=== PATIENT | male | born 1980 | race Caucasian/White ===

== ENCOUNTER 2016-11-10 19:26 | Emergency (ER) ==
[2016-11-10] MEDS ORDERED: AUGMENTIN 875-125 MG TAB PO STA (19:44)
[2016-11-10] MEDS ORDERED: TENIVAC IM ONE (19:44)
[2016-11-10 19:46] VITALS: BP 135/89; TEMP 98.4; BMI 20.1
--- NOTE | 2016-11-10 19:46 | ED.PDOC ---
General ED Provider: Dr. EASTON LANE-ER Chief Complaint: Bite Stated Complaint: bitten by dog on the left hand Time Seen by Physician: 19:30 Mode of Arrival: Walk-In Information Source: Patient Exam Limitations: No limitations Nursing and Triage Documentation Reviewed and Agree: Yes Skin Complaint Exam - Laceration/Abrasion/Hand Complaint/Exam Location of Injury: Right, Left, Hand Mechanism of Injury: Puncture Onset/Duration: 8hrs Symptoms Are: Still present Initial Severity: Mild Current Severity: Mild Aggravating: Movement Alleviating: Compression Associated Signs and Symptoms: Denies: Fever, Chills, Erythema, Numbness, Tingling Differential Diagnoses: Bite Injury Review of Systems - Review Of Systems Constitutional: Reports: No symptoms Eyes: Reports: No symptoms Ears, Nose, Mouth, Throat: Reports: No symptoms Respiratory: Reports: No symptoms Cardiac: Reports: No symptoms GI: Reports: No symptoms : Reports: No symptoms Musculoskeletal: Reports: No symptoms Skin: Reports: No symptoms Neurological: Reports: No symptoms Endocrine: Reports: No symptoms Hematologic/Lymphatic: Reports: No symptoms All Other Systems: Reviewed and Negative Past Medical History - Past Medical History Endocrine: Reports: Unknown Cardiovascular: Reports: Unknown Respiratory: Reports: Unknown Hematological: Reports: Unknown Gastrointestinal: Reports: Unknown Genitourinary: Reports: Unknown Neuro/Psych: Reports: Unknown Musculoskeletal: Reports: Unknown Cancer: Reports: Unknown - Surgical History General Surgical History: Reports: Unknown - Family History Family History: Reports: Unknown - Social History Smoking Status: Former smoker Hx Substance Use: No Alcohol Screening: Occasionally Lives: With family - Immunizations Tetanus Shot up to Date: No Physical Exam - Physical Exam Appearance: Well-appearing, No pain distress, Well-nourished Pain Distress: Mild Eyes: SVETA, EOMI, Conjunctiva clear ENT: Ears normal, Nose normal, Oropharynx normal Neck: Supple Respiratory: Airway patent Cardiovascular: RRR GI/: Soft, Nontender, No masses, Bowel sounds normal, No Organomegaly Musculoskeletal: Normal strength, ROM intact, No edema, No calf tenderness Skin: Warm, Dry, Normal color Neurological: Sensation intact, Motor intact, Reflexes intact, Cranial nerves intact, Alert, Oriented Psychiatric: Affect appropriate, Mood appropriate Interpretation - Radiology Interpretation Radiology Interpretation By: ED Physician Radiology Results: Negative ("old boxers fx") Critical Care Note - Critical Care Note Total Time (mins): 0 Course - Course Orders, Labs, Meds: Orders Category Date Time Status Wound care [ED WOUND CARE] .ONCE EMERGENCY 11/10/16 19:45 Active Amoxicillin/Potassium Clav [Augmentin 875-125 mg Tab] MEDS 11/10/16 19:44 Discontinued 1 tab PO ONCE STA Tetanus and Diphtheria Tox/Pf [Tenivac] MEDS 11/10/16 19:44 Discontinued 0.5 ml IM .ONCE ONE HAND, LEFT 3 VIEWS Stat RADS 11/10/16 19:44 Taken Medications Discontinued Medications Generic Name Dose Route Start Last Admin Trade Name Freq PRN Reason Stop Dose Admin Amoxicillin/Clavulanate Potassium 1 tab 11/10/16 19:44 Augmentin 875-125 Mg Tab PO 11/10/16 19:45 ONCE STA Tetanus/Diphtheria Toxoids Adsorbed 0.5 ml 11/10/16 19:44 Tenivac IM 11/10/16 19:45 .ONCE ONE Vital Signs: Temp Pulse Resp BP Pulse Ox 11/10/16 19:28 98.4 F 94 H 20 135/89 97 Departure - Departure Time of Disposition: 19:56 Disposition: HOME SELF-CARE Discharge Problem: Dog bite Qualifiers: Encounter type: initial encounter Qualifier Code: (W54.0XXA) Bitten by dog, initial encounter Instructions: Animal Bite (ED) Condition: Good Pt referred to PMD for follow-up: Yes Additional Instructions: wash wound twice daily with soap and water --augmentin 875mg bid x 5 days-- return if any increased swelling or pain Allergies/Adverse Reactions: Allergies No Known Allergies Allergy (Unverified 11/10/16 19:40) Home Medications: Ambulatory Orders 1 [No Reported Medications] 11/10/16 Disposition Discussed With: Patient, Family
--- NOTE | 2016-11-11 07:39 | DI ---
EXAM: Three x-rays of the left hand. Comparison: None available. Reason for exam: I. FINDINGS: No acute fracture or dislocation. The joint spaces are well maintained. Cortical irregu larity in the left fifth metacarpal likely from previous injury. No radiopaque retained foreign bod ies or calcific soft tissue densities. Impression: No acute fracture or dislocation in the left hand.
== END 2016-11-10 20:00 | disposition home or self-care (01) ==
LOC: ED 19:26
DX: S61.452A Open bite of left hand, initial encounter (principal); W54.0XXA Bitten by dog, initial encounter
CPT/HCPCS: 90471; 99283

== ENCOUNTER 2017-12-06 18:23 | Emergency (ER) ==
[2017-12-06 18:31] VITALS: BP 130/88; TEMP 99.1; BMI 19.1
--- NOTE | 2017-12-06 18:45 | ED.PDOC ---
General Stated Complaint: i kicked a lawnmower seat--i think my foot is broken Time Seen by Physician: 18:30 Mode of Arrival: Walk-In Information Source: Patient Exam Limitations: No limitations Nursing and Triage Documentation Reviewed and Agree: Yes Reviewed sepsis parameters & appropriate labs ordered?: Yes System Inflammatory Response Syndrome: Not Applicable <EASTON LEE - Last Filed: 12/06/17 18:43> <BHUMI LEÓN - Last Filed: 12/06/17 20:04> ED Provider: Dr. BHUMI LEÓN Chief Complaint: Foot Pain/Injury Sepsis Protocol: For patient's 13 years and over: Temp is 96.8 and below OR 101 and greater Pulse >90 BPM Resp >20/minute Acutely Altered Mental Status Are patient's symptoms suggestive of a new infection, such as: -Pneumonia -Skin, Soft Tissue -Endocarditis -UTI -Bone, Joint Infection -Implantable Device -Acute Abdominal Infection -Wound Infection -Meningitis -Blood Stream Catheter Infection -Unknown Musculoskeletal Complaint Exam - Ankle/Foot Complaint/Exam Location of Injury: Reports: Right, Foot Mechanism of Injury: Reports: Trauma Onset/Duration: 6 hrs Symptoms Are: Reports: Still present Onset of Pain: Reports: Immediate Initial Severity: Mild Current Severity: Mild Location: Reports: Discrete (right foot) Character: Reports: Dull, Aching Aggravating: Reports: Movement, Weight bearing Able to Bear Weight: No Associated Signs and Symptoms: Reports: Swelling Lower Extremity Findings: Present: Swelling, Tenderness, Limited range of motion Achilles Tendon Abnormality: No Tenderness: Present: Midfoot, Metatarsals Differential Diagnosis: Contusion, Closed Fracture, Sprain, Strain <EASTON LEE - Last Filed: 12/06/17 18:43> Review of Systems - Review Of Systems Constitutional: Reports: No symptoms Eyes: Reports: No symptoms Ears, Nose, Mouth, Throat: Reports: No symptoms Respiratory: Reports: No symptoms Cardiac: Reports: No symptoms GI: Reports: No symptoms : Reports: No symptoms Musculoskeletal: Reports: Muscle pain Skin: Reports: No symptoms Neurological: Reports: No symptoms Endocrine: Reports: No symptoms Hematologic/Lymphatic: Reports: No symptoms All Other Systems: Reviewed and Negative <EASTON LEE - Last Filed: 12/06/17 18:43> Past Medical History - Past Medical History Previously Healthy: Yes Endocrine: Reports: Unknown Cardiovascular: Reports: Unknown Respiratory: Reports: Unknown Hematological: Reports: Unknown Gastrointestinal: Reports: Unknown Genitourinary: Reports: Unknown Neuro/Psych: Reports: Unknown Musculoskeletal: Reports: Unknown Cancer: Reports: Unknown - Surgical History General Surgical History: Reports: Unknown - Family History Family History: Reports: Unknown - Social History Smoking Status: Former smoker Hx Substance Use: No Alcohol Screening: Occasionally <CIELOEFRENEASTON Last Filed: 12/06/17 18:43> Physical Exam - Physical Exam Appearance: Well-appearing, No pain distress, Well-nourished Eyes: SVETA, EOMI, Conjunctiva clear ENT: Ears normal, Nose normal, Oropharynx normal Neck: Supple Respiratory: Airway patent, Breath sounds clear, Breath sounds equal, Respirations nonlabored Cardiovascular: RRR, Pulses normal, No rub, No murmur GI/: Soft, Nontender, No masses, Bowel sounds normal, No Organomegaly Musculoskeletal: Limited ROM, Edema Skin: Warm Neurological: Sensation intact, Motor intact, Reflexes intact, Cranial nerves intact, Alert, Oriented Psychiatric: Affect appropriate, Mood appropriate <CIELOEFRENEASTON Last Filed: 12/06/17 18:43> Interpretation - Radiology Interpretation Radiology Interpretation By: Radiologist Radiology Results: Positive (Fracture 1st cuniform bone) <BHUMI LEÓN Last Filed: 12/06/17 20:04> Critical Care Note - Critical Care Note Total Time (mins): 30 <MARK LEÓNAN Filed: 12/06/17 20:04> - Course Orders, Labs, Meds: Orders Category Date Time Status Ice Pack [ED APPLY ICE AFFECTED AREA] .ONCE EMERGENCY 12/06/17 18:[address] FOOT RIGHT WITHOUT CONTRAST Stat RADS 12/06/17 18:33 Completed FOOT, RIGHT 3 VIEWS Stat RADS 12/06/17 19:08 Completed Vital Signs: Temp Pulse Resp BP Pulse Ox 12/06/17 18:24 99.1 F 107 H 16 130/88 96 Departure <[email or web address] Last Filed: 12/06/17 18:43> - Departure Time of Disposition: 20:01 Pt referred to PMD for follow-up: Yes IPMP verified?: Yes Disposition Discussed With: Patient, Family <BHUMI LEÓN - Last Filed: 12/06/17 20:04> - Departure Disposition: HOME SELF-CARE Discharge Problem: Cuneiform fracture, foot Instructions: Foot Fracture in Adults (ED) Condition: Stable Additional Instructions: rest f/u with [facility], needs ortho f./u Prescriptions: Hydrocodone Bit/Acetaminophen [Clarion 7.5-325] 1 each PO Q8H #10 tablet Allergies/Adverse Reactions: Allergies No Known Allergies Allergy (Verified 12/06/17 18:28) Home Medications: Ambulatory Orders Hydrocodone Bit/Acetaminophen [Clarion 7.5-325] 1 each PO Q8H #10 tablet 12/06/17
--- NOTE | 2017-12-06 19:31 | CT ---
Addendum: There is a 2 mm bony body within the dorsal medial aspect of the first tarsometatarsal joint.. There is also a 3.7 mm linear bony body arising dorsolaterally from the first cuneiform.. There is minima l adjacent soft tissue swelling.
--- NOTE | 2017-12-06 19:38 | DI ---
EXAM: Right foot three views HISTORY: Trauma COMPARISON: None. FINDINGS: There is 2.6 mm linear bony body adjacent to the distal aspect of the first cuneiform along the dorsal medial aspect. There is mild adjacent soft tissue swelling. No other abnormalities ident ified. IMPRESSION: Likely small linear avulsion fracture arising dorsomedially the from the first cuneiform .
== END 2017-12-06 20:11 | disposition home or self-care (01) ==
LOC: ED 18:23
DX: S92.241A Displaced fracture of medial cuneiform of right foot, initial encounter for closed fracture (principal); W22.8XXA Striking against or struck by other objects, initial encounter
CPT/HCPCS: 99283

== ENCOUNTER 2019-01-12 15:42 | Outpatient (CLI) | END 2019-01-12 15:43 | disposition home or self-care (01) | LOC: RHC-LAB 15:42 | PROVIDERS: ATTEND Nurse Practitioner Family | DX: Z00.00 Encounter for general adult medical examination without abnormal findings (principal); R53.83 Other fatigue; I10 Essential (primary) hypertension | CPT/HCPCS: 36415; 80053; 80061; 84443; 85025 ==